=== PATIENT | female | born 1995 | race Caucasian/White ===

== ENCOUNTER 2016-03-26 15:32 | Outpatient (CLI) | payer OTHER ==
[~2016-03-26] VITALS: Ht 162.6 cm; Wt 68.2 kg
[~2016-03-26 15:32] MED LIST: ANAPROX DS550 M1 PO; DICLEGIS DR 101 EACH PO; FLINTSTONES M100 MCG PO; MAALOX ADVANCE355 ML PO; ONDANSETRON ODT4 MG PO; PEPCID20 MG PO; PHENERGAN25 MG PR; PROMETHAZINE HC25 M1 PO; PROTONIX40 MG PO; VICODIN 5-3001 EACH PO; ZOFRAN ODT4 MG PO; ZOLOFT50 MG PO
[2016-03-26 15:53] VITALS: BP 139/74
[2016-03-26 16:55] LABS: EOSINOPHIL (%) 0 % (0-5); IMMATURE GRANULOCYTE (%) 0.5 % (0.0-0.7); LYMPHOCYTE COUNT 0.6 K/uL (1.0-2.8); MCH 30.8 PG (29.0-34.0); MCHC 33.9 G/DL (30.0-36.0); MCV 90.9 FL (83-99); MEAN PLAT.VOLUME 9.1 uM^3 (9.5-12.4); MONOCYTE COUNT 0.9 K/uL (0-0.8); NEUTROPHIL (%) 81.4 % (45-76); NEUTROPHIL COUNT 6.8 K/uL (1.8-6.4); PLATELET COUNT 225 K/uL (156-360); RED BLOOD COUNT 3.96 M/uL (3.80-5.20); WHITE BLOOD COUNT 8.3 K/uL (4.1-10.2)
[2016-03-26 17:04] LABS: INFLUENZA A VIRAL ANTIGEN POSITIVE; INFLUENZA B VIRAL ANTIGEN POSITIVE
[2016-03-26 19:07] VITALS: BP 117/57
[2016-03-26 22:43] VITALS: BP 107/54
[2016-03-27 07:52] VITALS: BP 127/60
[2016-03-27] MEDS ORDERED: OSELTAMIVIR PHO75 MG PO (09:26)
[2016-03-27] MEDS ORDERED: Robitussin AC,Tussi- PO (09:27)
[2016-03-27] MEDS ORDERED: VENTOLIN HFA18 GM IH (09:27)
== END 2016-03-27 10:10 | disposition home or self-care (01) ==
LOC: LDRP-OP 15:32 → 2WEST 15:33 → LDRP-OP 08-04 13:53
PROVIDERS: Nurse Practitioner
DX: R05 Cough (principal); R50.9 Fever, unspecified; R53.83 Other fatigue; O99.89 Other specified diseases and conditions complicating pregnancy, childbirth and the puerperium; Z3A.25 25 weeks gestation of pregnancy
CPT/HCPCS: 59025; 81003; 85025; 87502; 94640; 94640 76; 99202; G0378; J2765; J7120

== ENCOUNTER 2016-05-11 09:20 | Outpatient (CLI) | payer OTHER ==
[~2016-05-11] VITALS: Ht 162.6 cm; Wt 74.1 kg
[~2016-05-11 09:20] MED LIST changes: +OSELTAMIVIR PHO75 MG PO; +Robitussin AC,Tussi- PO; +VENTOLIN HFA18 GM IH
[2016-05-11 10:08] VITALS: BP 158/99
[2016-05-11 10:10] VITALS: BP 150/93
[2016-05-11 10:43] VITALS: BP 142/82
[2016-05-11 11:10] LABS: ANION GAP 11 MEQ/L (2-14); CHLORIDE 104 MEQ/L (99-109); POTASSIUM 3.8 MEQ/L (3.7-5.4); SAMPLE HEMOLYSIS CHECK 0; SAMPLE ICTERIC CHECK 0; SAMPLE LIPEMIA CHECK 0; SODIUM 138 MEQ/L (136-147); TOTAL BILIRUBIN 0.3 MG/DL (0.0-1.0)
[2016-05-11 11:13] VITALS: BP 142/82
[2016-05-11 11:15] LABS: UR CREATININE CONCENTRATION 45.5 MG/DL
[2016-05-11 11:15] LABS: ALKALINE PHOSPHATASE 87 IU/L (3-129); GFR ESTIMATE (CALCULATED) > 59 mL/min/; GLUCOSE 90 mg/dL (70-99); UREA NITROGEN (BUN) 6 mg/dL (9-23)
[2016-05-11 11:43] VITALS: BP 137/91
[2016-05-11 11:48] LABS: EOSINOPHIL (%) 0.3 % (0-5); HEMATOCRIT 38.9 % (36.0-46.0); IMMATURE GRANULOCYTE (%) 0.6 % (0.0-0.7); IMMATURE GRANULOCYTE COUNT 0.1 K/uL; INSTRUMENT ABS NEUTROPHIL CT 11.1 K/uL; MCH 31.4 PG (29.0-34.0); MCHC 34.2 G/DL (30.0-36.0); MCV 91.7 FL (83-99); MEAN PLAT.VOLUME 8.6 uM^3 (9.5-12.4); MONOCYTE (%) 6.3 % (3-12); MONOCYTE COUNT 0.8 K/uL (0-0.8); NEUTROPHIL COUNT 11.1 K/uL (1.8-6.4); PLATELET COUNT 335 K/uL (156-360); RBC DIS.WIDTH-CV 12.9 % (11.8-14.6); RBC DIS.WIDTH-SD 42.9 % (39-53); RED BLOOD COUNT 4.24 M/uL (3.80-5.20)
[2016-05-11 15:08] VITALS: BP 151/84
== END 2016-05-11 15:38 | disposition home or self-care (01) ==
LOC: LDRP-OP 09:20 → 2WEST 09:21 → LDRP-OP 08-05 10:32
PROVIDERS: Nurse Practitioner
DX: O13.3 Gestational [pregnancy-induced] hypertension without significant proteinuria, third trimester (principal); Z3A.32 32 weeks gestation of pregnancy; O26.893 Other specified pregnancy related conditions, third trimester; M79.604 Pain in right leg; M79.605 Pain in left leg; R51 Headache; R09.89 Other specified symptoms and signs involving the circulatory and respiratory systems
CPT/HCPCS: 59025; 76818; 80053; 82570; 84156; 84550; 85025; 93970; G0378

== ENCOUNTER 2016-05-14 10:35 | Outpatient (CLI) | payer OTHER ==
[2016-05-11 10:08] VITALS: BP 151/99
[~2016-05-14] VITALS: Ht 162.6 cm; Wt 73.2 kg
[2016-05-14 11:32] VITALS: BP 145/85
[2016-05-14 12:11] LABS: EOSINOPHIL (%) 0.3 % (0-5); IMMATURE GRANULOCYTE (%) 0.5 % (0.0-0.7); IMMATURE GRANULOCYTE COUNT 0.1 K/uL; INSTRUMENT ABS NEUTROPHIL CT 9.5 K/uL; LYMPHOCYTE COUNT 1.3 K/uL (1.0-2.8); MCH 31.4 PG (29.0-34.0); MCHC 34.5 G/DL (30.0-36.0); MCV 91.1 FL (83-99); MONOCYTE (%) 7.5 % (3-12); MONOCYTE COUNT 0.9 K/uL (0-0.8); NEUTROPHIL (%) 80.5 % (45-76); NEUTROPHIL COUNT 9.5 K/uL (1.8-6.4); PLATELET COUNT 334 K/uL (156-360); RBC DIS.WIDTH-CV 12.9 % (11.8-14.6); RBC DIS.WIDTH-SD 43.1 % (39-53); RED BLOOD COUNT 4.17 M/uL (3.80-5.20); WHITE BLOOD COUNT 11.8 K/uL (4.1-10.2)
[2016-05-14 12:23] VITALS: BP 160/85
[2016-05-14 12:39] VITALS: BP 147/74
[2016-05-14 12:53] VITALS: BP 145/78
[2016-05-14 13:05] LABS: ALKALINE PHOSPHATASE 85 IU/L (3-129); ANION GAP 10 MEQ/L (2-14); CHLORIDE 104 MEQ/L (99-109); GFR ESTIMATE (CALCULATED) > 59 mL/min/; GLUCOSE 70 mg/dL (70-99); SAMPLE HEMOLYSIS CHECK 0; SAMPLE ICTERIC CHECK 0; SAMPLE LIPEMIA CHECK 0; SODIUM 136 MEQ/L (136-147); TOTAL BILIRUBIN 0.3 MG/DL (0.0-1.0); UREA NITROGEN (BUN) 6 mg/dL (9-23)
[2016-05-14 13:21] LABS: UR CREATININE CONCENTRATION 83.7 MG/DL
[2016-05-14 13:25] LABS: URIC ACID 4.5 mg/dL (3.1-9.2)
[2016-05-14 13:34] VITALS: BP 136/66
== END 2016-05-14 16:15 | disposition home or self-care (01) ==
LOC: LDRP-OP 10:35 → 2WEST 10:36 → LDRP-OP 08-04 15:59
PROVIDERS: Nurse Practitioner
DX: O13.3 Gestational [pregnancy-induced] hypertension without significant proteinuria, third trimester (principal); Z3A.33 33 weeks gestation of pregnancy
CPT/HCPCS: 59025; 80053; 82570; 84156; 84550; 85025; G0378; J0702

== ENCOUNTER 2016-06-01 11:21 | Outpatient (CLI) | payer OTHER ==
[~2016-06-01] VITALS: Ht 162.6 cm; Wt 76.2 kg
[2016-06-01] VITALS (8 sets, daily range): BP systolic 130–162; BP diastolic 73–102
[2016-06-01 12:44] LABS: EOSINOPHIL (%) 0.2 % (0-5); IMMATURE GRANULOCYTE (%) 0.5 % (0.0-0.7); IMMATURE GRANULOCYTE COUNT 0.1 K/uL; INSTRUMENT ABS NEUTROPHIL CT 10.6 K/uL; LYMPHOCYTE COUNT 1.3 K/uL (1.0-2.8); MCH 31.9 PG (29.0-34.0); MCHC 35.1 G/DL (30.0-36.0); MCV 90.7 FL (83-99); MONOCYTE (%) 6.6 % (3-12); MONOCYTE COUNT 0.9 K/uL (0-0.8); NEUTROPHIL (%) 82.1 % (45-76); NEUTROPHIL COUNT 10.6 K/uL (1.8-6.4); PLATELET COUNT 339 K/uL (156-360); RBC DIS.WIDTH-CV 12.8 % (11.8-14.6); RBC DIS.WIDTH-SD 42.3 % (39-53); WHITE BLOOD COUNT 12.9 K/uL (4.1-10.2)
[2016-06-01 12:55] LABS: UR CREATININE CONCENTRATION 35.3 MG/DL
[2016-06-01 12:57] LABS: CHLORIDE 105 mEq/L (99-109); POTASSIUM 3.9 mEq/L (3.7-5.4); SODIUM 139 mEq/L (136-147)
[2016-06-01 12:59] LABS: GLUCOSE 105 mg/dL (70-99)
[2016-06-01 13:01] LABS: ANION GAP 12 MEQ/L (2-14); TOTAL BILIRUBIN 0.3 mg/dL (0.0-1.0)
[2016-06-01 13:03] LABS: ALKALINE PHOSPHATASE 112 IU/L (3-129); GFR ESTIMATE (CALCULATED) > 59 mL/min/
[2016-06-01 13:04] LABS: UREA NITROGEN (BUN) 6 mg/dL (9-23)
[2016-06-01 13:06] LABS: URIC ACID 4.7 mg/dL (3.1-9.2)
== END 2016-06-01 16:15 | disposition home or self-care (01) ==
LOC: LDRP-OP 11:21 → 2WEST 11:22 → LDRP-OP 08-04 16:33
PROVIDERS: Nurse Practitioner
DX: O13.3 Gestational [pregnancy-induced] hypertension without significant proteinuria, third trimester (principal); Z3A.32 32 weeks gestation of pregnancy
CPT/HCPCS: 59025; 80053; 82570; 84156; 84550; 85025; G0378

== ENCOUNTER 2016-06-04 10:49 | Outpatient (CLI) | payer OTHER ==
[~2016-06-04] VITALS: Ht 162.6 cm; Wt 77.7 kg
[2016-06-04] VITALS (10 sets, daily range): BP systolic 142–165; BP diastolic 78–100
[2016-06-04 11:25] LABS: EOSINOPHIL (%) 0.4 % (0-5); EOSINOPHIL COUNT 0.1 K/uL (0-0.3); HEMATOCRIT 38.3 % (36.0-46.0); IMMATURE GRANULOCYTE (%) 0.5 % (0.0-0.7); IMMATURE GRANULOCYTE COUNT 0.1 K/uL; INSTRUMENT ABS NEUTROPHIL CT 10.4 K/uL; LYMPHOCYTE COUNT 1.3 K/uL (1.0-2.8); MCH 31.3 PG (29.0-34.0); MCHC 34.2 G/DL (30.0-36.0); MCV 91.4 FL (83-99); MEAN PLAT.VOLUME 8.6 uM^3 (9.5-12.4); MONOCYTE (%) 7.7 % (3-12); NEUTROPHIL (%) 81.1 % (45-76); NEUTROPHIL COUNT 10.4 K/uL (1.8-6.4); PLATELET COUNT 322 K/uL (156-360); RBC DIS.WIDTH-CV 13.1 % (11.8-14.6); RBC DIS.WIDTH-SD 43.8 % (39-53); RED BLOOD COUNT 4.19 M/uL (3.80-5.20); WHITE BLOOD COUNT 12.8 K/uL (4.1-10.2)
[2016-06-04 12:29] LABS: ALKALINE PHOSPHATASE 105 IU/L (3-129); ANION GAP 9 MEQ/L (2-14); CHLORIDE 104 MEQ/L (99-109); GFR ESTIMATE (CALCULATED) > 59 mL/min/; GLUCOSE 81 mg/dL (70-99); SAMPLE HEMOLYSIS CHECK 0; SAMPLE ICTERIC CHECK 0; SAMPLE LIPEMIA CHECK 0; SODIUM 136 MEQ/L (136-147); TOTAL BILIRUBIN 0.4 MG/DL (0.0-1.0); UREA NITROGEN (BUN) 7 mg/dL (9-23)
[2016-06-04 13:01] LABS: DRSB INTERNAL CONTROL PASS; PROBE CHECK PASS; SPECIMEN PROCESSING CONTROL PASS
[2016-06-04] MEDS ORDERED: LABETALOL HCL200 MG PO (14:22)
== END 2016-06-04 15:00 | disposition home or self-care (01) ==
LOC: LDRP-OP 10:49 → 2WEST 10:50 → LDRP-OP 08-04 16:28
PROVIDERS: Midwife; Obstetrics & Gynecology
DX: O13.3 Gestational [pregnancy-induced] hypertension without significant proteinuria, third trimester (principal); Z3A.35 35 weeks gestation of pregnancy
CPT/HCPCS: 59025; 80053; 81050; 82570; 84156; 85025; 87081; 87653; G0378

== ENCOUNTER 2016-06-08 10:39 | Outpatient (CLI) | payer OTHER ==
[~2016-06-08] VITALS: Ht 162.6 cm; Wt 78.6 kg
[~2016-06-08 10:39] MED LIST changes: +LABETALOL HCL200 MG PO
[2016-06-08 10:52] VITALS: BP 137/92
[2016-06-08 11:11] VITALS: BP 139/93
[2016-06-08 11:23] VITALS: BP 142/88
[2016-06-08 11:38] VITALS: BP 147/94
[2016-06-08 11:53] VITALS: BP 150/91
[2016-06-08 12:23] VITALS: BP 138/86
== END 2016-06-08 12:56 | disposition home or self-care (01) ==
LOC: LDRP-OP 10:39 → 2WEST 10:40 → LDRP-OP 08-04 15:54
DX: O60.03 Preterm labor without delivery, third trimester (principal); Z3A.35 35 weeks gestation of pregnancy
CPT/HCPCS: 59025; G0378

== ENCOUNTER 2016-06-11 09:41 | Outpatient (CLI) | payer OTHER ==
[~2016-06-11] VITALS: Ht 162.6 cm; Wt 78.6 kg
[2016-06-11 10:01] VITALS: BP 158/100
[2016-06-11 10:26] VITALS: BP 136/90
[2016-06-11 10:31] VITALS: BP 144/94
[2016-06-11 11:27] VITALS: BP 153/87
[2016-06-11 12:36] LABS: EOSINOPHIL (%) 0.3 % (0-5); HEMATOCRIT 40.8 % (36.0-46.0); IMMATURE GRANULOCYTE (%) 0.7 % (0.0-0.7); IMMATURE GRANULOCYTE COUNT 0.1 K/uL; INSTRUMENT ABS NEUTROPHIL CT 11.5 K/uL; LYMPHOCYTE COUNT 1.3 K/uL (1.0-2.8); MCH 31.4 PG (29.0-34.0); MCHC 34.1 G/DL (30.0-36.0); MCV 92.1 FL (83-99); MEAN PLAT.VOLUME 9.4 uM^3 (9.5-12.4); MONOCYTE (%) 6.1 % (3-12); MONOCYTE COUNT 0.8 K/uL (0-0.8); NEUTROPHIL (%) 83.3 % (45-76); NEUTROPHIL COUNT 11.5 K/uL (1.8-6.4); PLATELET COUNT 334 K/uL (156-360); RBC DIS.WIDTH-SD 43.9 % (39-53); RED BLOOD COUNT 4.43 M/uL (3.80-5.20); WHITE BLOOD COUNT 13.8 K/uL (4.1-10.2)
[2016-06-11 12:51] LABS: UR CREATININE CONCENTRATION 31.9 MG/DL
[2016-06-11 13:06] LABS: ALKALINE PHOSPHATASE 106 IU/L (3-129); ANION GAP 10 MEQ/L (2-14); CHLORIDE 103 MEQ/L (99-109); GFR ESTIMATE (CALCULATED) > 59 mL/min/; GLUCOSE 118 mg/dL (70-99); POTASSIUM 3.1 MEQ/L (3.7-5.4); SAMPLE HEMOLYSIS CHECK 0; SAMPLE ICTERIC CHECK 0; SAMPLE LIPEMIA CHECK 0; SODIUM 139 MEQ/L (136-147); TOTAL BILIRUBIN 0.3 MG/DL (0.0-1.0); UREA NITROGEN (BUN) 5 mg/dL (9-23)
[2016-06-11 13:16] VITALS: BP 129/69
== END 2016-06-11 13:55 | disposition home or self-care (01) ==
LOC: LDRP-OP 09:41 → 2WEST 09:42 → LDRP-OP 08-04 13:40
PROVIDERS: Nurse Practitioner
DX: O13.3 Gestational [pregnancy-induced] hypertension without significant proteinuria, third trimester (principal); Z3A.36 36 weeks gestation of pregnancy
CPT/HCPCS: 59025; 80053; 82570; 84156; 85025; G0378

== ENCOUNTER 2016-06-14 17:28 | Inpatient (IN) | payer OTHER ==
[2016-06-14] VITALS (7 sets, daily range): BP systolic 136–158; BP diastolic 74–98
[~2016-06-14] VITALS: Ht 162.6 cm; Wt 76.8 kg
[2016-06-14] MEDS ORDERED: PROAIR HFA8.5 GM IH (18:01)
[2016-06-14 19:26] LABS: EOSINOPHIL (%) 0.5 % (0-5); EOSINOPHIL COUNT 0.1 K/uL (0-0.3); HEMATOCRIT 36.8 % (36.0-46.0); IMMATURE GRANULOCYTE (%) 0.7 % (0.0-0.7); IMMATURE GRANULOCYTE COUNT 0.1 K/uL; INSTRUMENT ABS NEUTROPHIL CT 9.8 K/uL; LYMPHOCYTE COUNT 1.7 K/uL (1.0-2.8); MCH 31.4 PG (29.0-34.0); MCHC 34.5 G/DL (30.0-36.0); MCV 91.1 FL (83-99); MEAN PLAT.VOLUME 8.7 uM^3 (9.5-12.4); MONOCYTE (%) 8.5 % (3-12); MONOCYTE COUNT 1.1 K/uL (0-0.8); NEUTROPHIL (%) 76.7 % (45-76); NEUTROPHIL COUNT 9.8 K/uL (1.8-6.4); PLATELET COUNT 326 K/uL (156-360); RBC DIS.WIDTH-CV 12.8 % (11.8-14.6); RBC DIS.WIDTH-SD 42.5 % (39-53); RED BLOOD COUNT 4.04 M/uL (3.80-5.20); WHITE BLOOD COUNT 12.7 K/uL (4.1-10.2)
[2016-06-14 19:59] LABS: ALKALINE PHOSPHATASE 100 IU/L (3-129); ANION GAP 13 MEQ/L (2-14); CHLORIDE 104 MEQ/L (99-109); GFR ESTIMATE (CALCULATED) > 59 mL/min/; GLUCOSE 104 mg/dL (70-99); POTASSIUM 3.6 MEQ/L (3.7-5.4); SAMPLE HEMOLYSIS CHECK 0; SAMPLE ICTERIC CHECK 0; SAMPLE LIPEMIA CHECK 0; SODIUM 140 MEQ/L (136-147); UREA NITROGEN (BUN) 7 mg/dL (9-23)
[2016-06-14 20:00] LABS: TOTAL BILIRUBIN 0.2 MG/DL (0.0-1.0)
[2016-06-14 20:55] LABS: UR CREATININE CONCENTRATION 65.5 MG/DL
[2016-06-15] VITALS (29 sets, daily range): BP systolic 117–161; BP diastolic 55–98
[2016-06-16] VITALS (20 sets, daily range): BP systolic 111–164; BP diastolic 58–94
[2016-06-16] MEDS ORDERED: PERCOCET 5/31 TABLET PO (23:56)
[2016-06-16] MEDS ORDERED: IBUPROFEN800 MG PO (23:56)
[2016-06-17] VITALS (11 sets, daily range): BP systolic 106–133; BP diastolic 54–76
[2016-06-17 06:28] LABS: EOSINOPHIL (%) 0.3 % (0-5); EOSINOPHIL COUNT 0.1 K/uL (0-0.3); HEMATOCRIT 33.8 % (36.0-46.0); IMMATURE GRANULOCYTE (%) 0.7 % (0.0-0.7); IMMATURE GRANULOCYTE COUNT 0.1 K/uL; LYMPHOCYTE COUNT 1.8 K/uL (1.0-2.8); MCH 31.8 PG (29.0-34.0); MCHC 34.3 G/DL (30.0-36.0); MCV 92.6 FL (83-99); MONOCYTE (%) 8.1 % (3-12); MONOCYTE COUNT 1.3 K/uL (0-0.8); NEUTROPHIL (%) 79.9 % (45-76); PLATELET COUNT 298 K/uL (156-360); RBC DIS.WIDTH-CV 13.2 % (11.8-14.6); RBC DIS.WIDTH-SD 44.9 % (39-53); RED BLOOD COUNT 3.65 M/uL (3.80-5.20); WHITE BLOOD COUNT 16.3 K/uL (4.1-10.2)
[2016-06-18 00:13] VITALS: BP 141/62
[2016-06-18 02:58] VITALS: BP 122/60
[2016-06-18 13:00] VITALS: BP 128/62
[2016-06-18 15:24] VITALS: BP 139/69
[2016-06-18 19:30] VITALS: BP 135/78
[2016-06-18 23:15] VITALS: BP 141/70
[2016-06-19 03:40] VITALS: BP 145/71
[2016-06-19 07:21] VITALS: BP 137/69
[2016-06-19 11:28] VITALS: BP 141/79
== END 2016-06-19 13:30 | disposition home or self-care (01) | DRG 766 ==
LOC: 2WEST → LDRP-OP 17:28 → 2WEST 17:30 → LDRP-OP 18:00 → 2WEST 06-16 23:21 → LDRP-OP 08-04 14:03
PROVIDERS: Nurse Practitioner; Obstetrics & Gynecology
PROC: 10D00Z1 Extraction of Products of Conception, Low, Open Approach (ICD-10-PCS; principal; 2016-06-16)
PROC: 3E033VJ Introduction of Other Hormone into Peripheral Vein, Percutaneous Approach (ICD-10-PCS; 2016-06-16)
DX: O14.04 Mild to moderate pre-eclampsia, complicating childbirth (principal); O13.4 Gestational [pregnancy-induced] hypertension without significant proteinuria, complicating childbirth; Z3A.37 37 weeks gestation of pregnancy; Z37.0 Single live birth; O61.0 Failed medical induction of labor; O60.14X1 Preterm labor third trimester with preterm delivery third trimester, fetus 1
CPT/HCPCS: 80053; 82570; 84156; 85025; 88307; G0378; J0690; J1170; J2175; J2270; J2274; J2405; J2765; J3010; J7120

== ENCOUNTER 2016-10-07 15:56 | Emergency (ER) | payer OTHER ==
[~2016-10-07] VITALS: Ht 162.6 cm; Wt 76.4 kg
[~2016-10-07 15:56] MED LIST changes: +IBUPROFEN800 MG PO; +PERCOCET 5/31 TABLET PO; +PROAIR HFA8.5 GM IH
[2016-10-07] MEDS ORDERED: VENTOLIN HFA18 GM IH (18:00)
[2016-10-07 18:38] VITALS: BP 162/93
== END 2016-10-07 18:39 | disposition home or self-care (01) ==
LOC: EME 15:56
DX: J45.901 Unspecified asthma with (acute) exacerbation (principal); F17.200 Nicotine dependence, unspecified, uncomplicated; Z88.6 Allergy status to analgesic agent
CPT/HCPCS: 94640; 99281; 99284; J1100